=== PATIENT | female | born 1985 | race Caucasian/White ===

== ENCOUNTER 2022-08-18 12:56 | Outpatient (CLI) | payer BC, SELFPAY | END 2022-08-18 12:57 | disposition home or self-care (01) | PROVIDERS: Visit Provider Pediatrics Neonatal-Perinatal Medicine | DX: O09.522 Supervision of elderly multigravida, second trimester (principal); Z3A.20 20 weeks gestation of pregnancy | CPT/HCPCS: 76811 ==

== ENCOUNTER 2022-10-19 17:30 | Outpatient (CLI) | payer BC, SELFPAY | END 2022-10-19 17:31 | disposition home or self-care (01) | LOC: NFLDREF 10-21 12:53 | PROVIDERS: Visit Provider Registered Nurse | DX: O09.523 Supervision of elderly multigravida, third trimester (principal); Z3A.29 29 weeks gestation of pregnancy | CPT/HCPCS: 86592; 86762; 86787; 86850; 86900; 86901 ==

== ENCOUNTER 2022-10-25 08:28 | Outpatient (CLI) | payer BC, SELFPAY | END 2022-10-25 08:29 | disposition home or self-care (01) | LOC: NFLDREF 11:43 | PROVIDERS: Visit Provider Registered Nurse | DX: Z34.90 Encounter for supervision of normal pregnancy, unspecified, unspecified trimester (principal) | CPT/HCPCS: 82951; 82952 ==

== ENCOUNTER 2022-11-04 08:40 | Outpatient (CLI) | payer BC, SELFPAY ==
--- NOTE | 2022-11-04 08:45 | CRLHL7_ITS ---
For Patients: As a result of the Cures Act, medical imaging exams and procedure reports are released immediately into your electronic medical record. You may view this report before your referring provider. If you have questions, please contact your health care provider. INDICATION: Fundal height greater than dates COMPARISON: none TECHNIQUE: Real time amado scale imaging of the fetus was performed. FINDINGS: Sonographic imaging demonstrates a single living intrauterine gestation. Fetus demonstrates a regular cardiac rate of 131 beats per minute. Fetus has a vertex position. The placenta lies right anterior. Amniotic fluid volume appears increased and there is a single deepest vertical pocket: 7.9 cm. BIGG 28.0 cm. The estimated weight is 2gm which lies at the 79th %. BPD 82nd percentile. HC 79th percentile. AC 90th percentile. FL 31st percentile. The HC/AC ratio measures 1.04 range (0.96-1.11). There is adequate diastolic blood flow within the umbilical artery. The S/D ratio measures . IMPRESSION: Sonographic gestational age 33 weeks 0 days and sonographic due date 12/23/2022. Sonographic age 10 days ahead of the clinical age. Estimated weight 79th percentile. Abdominal circumference 90th percentile. Mild polyhydramnios with four-quadrant BIGG 28.0 cm. Dictated by Roger Garza MD @ 11/04/2022 1:12:18 PM (Electronically Signed)
== END 2022-11-04 08:41 | disposition home or self-care (01) ==
PROVIDERS: Visit Provider Registered Nurse
DX: O36.63X0 Maternal care for excessive fetal growth, third trimester, not applicable or unspecified (principal); O40.3XX0 Polyhydramnios, third trimester, not applicable or unspecified; Z3A.33 33 weeks gestation of pregnancy
CPT/HCPCS: 76816

== ENCOUNTER 2022-11-19 13:47 | Outpatient (CLI) | payer BC, SELFPAY ==
--- NOTE | 2022-11-19 14:00 | CRLHL7_ITS ---
For Patients: As a result of the Cures Act, medical imaging exams and procedure reports are released immediately into your electronic medical record. You may view this report before your referring provider. If you have questions, please contact your health care provider. OB ULTRASOUND/BIOPHYSICAL PROFILE 11/19/2022 INDICATION: Polyhydramnios. MONIK by LMP: 01/02/2023. GA: 33w, 5 d. Single. CERVIX: Not visualized. POSITIONING: Breech. AMNIOTIC FLUID: BIGG=32.4 cm. 10.9 cm SDP (N: increase 2 x 1 cm) BIOPHYSICAL PROFILE: Total score: 8. Gross body movements: 2. tone: 2. Respiratory activity: 2. Amniotic fluid: 2. (SDP N: Increase 2 x 1 cm) PLACENTA: Technique: Transabdominal. PLACENTA POSITION: Anterior. DOPPLER: heart rate: 139 bpm. IMPRESSION: Biophysical profile score 8/8. BIGG is 32.4 cm. Single deepest pocket 10.9 cm reflecting polyhydramnios. Shara Ramos M.D. Diagnostic/Breast Radiologist [email or web address] Transcribed: 8:59 am DW/Dictated by: Shara Ramos MD @ 11/20/2022 7:30:00 AM (Electronically Signed)
== END 2022-11-19 13:48 | disposition home or self-care (01) ==
LOC: US 13:48
PROVIDERS: Visit Provider Obstetrics & Gynecology
DX: O40.9XX0 Polyhydramnios, unspecified trimester, not applicable or unspecified (principal)
CPT/HCPCS: 76819

== ENCOUNTER 2022-11-24 08:41 | Outpatient (CLI) | payer BC, SELFPAY ==
--- NOTE | 2022-11-24 08:45 | CRLHL7_ITS ---
For Patients: As a result of the Century Cures Act, medical imaging exams and procedure reports are released immediately into your electronic medical record. You may view this report before your referring provider. If you have questions, please contact your health care provider. INDICATION: female. Evaluate well-being. Polyhydramnios. TECHNIQUE: Transabdominal limited obstetrical ultrasound. COMPARISON: November 19, 2022. FINDINGS: Single living intrauterine in breech presentation. Anterior placenta. heart rate 152 beats per minute. Biophysical profile score 8/8 with 2 points given each for breathing, movement, tone, and amniotic fluid. Persistent polyhydramnios. The amniotic fluid volume index is 39 cm, previously 32.4 cm. The single deepest pocket measurement was not evaluated today. Previously it was elevated at 10.9 cm. IMPRESSION: Biophysical profile score 8/8. Persistent and slightly progressed polyhydramnios. Amniotic fluid volume index 39 cm, previously 32.4 cm. Dictated by Ambrose Sheth MD @ 11/24/2022 4:15:37 PM (Electronically Signed)
== END 2022-11-24 08:42 | disposition home or self-care (01) ==
LOC: US 08:41
PROVIDERS: Visit Provider Obstetrics & Gynecology
DX: O40.9XX0 Polyhydramnios, unspecified trimester, not applicable or unspecified (principal)
CPT/HCPCS: 76819

== ENCOUNTER 2022-12-01 13:48 | Outpatient (CLI) | payer BC, SELFPAY ==
--- NOTE | 2022-12-01 14:00 | CRLHL7_ITS ---
For Patients: As a result of the Century Cures Act, medical imaging exams and procedure reports are released immediately into your electronic medical record. You may view this report before your referring provider. If you have questions, please contact your health care provider. INDICATION: Polyhydramnios. COMPARISON: OB ultrasound 11/24/2022. TECHNIQUE: Real time amado scale imaging of the fetus was performed without non-stress testing. FINDINGS: Sonographic imaging demonstrates a single living intrauterine gestation. The fetus demonstrates a regular cardiac rate of 150 beats per minute. The fetus has a cephalic orientation. The placenta lies anteriorly. There is polyhydramnios with single deepest pocket measuring 13.1 cm and the amniotic fluid index measuring 42.4 cm (2/2). This is increased from prior exam, with previous BIGG measuring 39.0 cm. The fetus was active (2/2). There was normal flexion and extension of the trunk and extremities (2/2). The fetus demonstrated normal breathing movements (2/2). IMPRESSION: 1. Normal biophysical profile score 8 out of 8. 2. Polyhydramnios with BIGG measuring 42.4 cm, increased from prior exam. Dictated by Mary Bahena MD @ 12/01/2022 11:17:49 PM (Electronically Signed)
== END 2022-12-01 13:49 | disposition home or self-care (01) ==
LOC: US 13:49
PROVIDERS: Visit Provider Obstetrics & Gynecology
DX: O40.9XX0 Polyhydramnios, unspecified trimester, not applicable or unspecified (principal)
CPT/HCPCS: 76819

== ENCOUNTER 2022-12-01 16:15 | Outpatient (CLI) | payer BC, SELFPAY ==
[2022-12-02 13:37] LABS: Strep B DNA Probe NEGATIVE (Negative)
[2022-12-02 13:47] LABS: Strep B Pen/Amox Allergy No
== END 2022-12-01 16:16 | disposition home or self-care (01) ==
PROVIDERS: Visit Provider Obstetrics & Gynecology
DX: O40.9XX0 Polyhydramnios, unspecified trimester, not applicable or unspecified (principal)
CPT/HCPCS: 87081; 87653

== ENCOUNTER 2024-08-30 14:09 | Outpatient (CLI) | payer BC, SELFPAY ==
--- NOTE | 2024-08-30 14:20 | CRLHL7_ITS ---
For Patients: As a result of the Century Cures Act, medical imaging exams and procedure reports are released immediately into your electronic medical record. You may view this report before your referring provider. If you have questions, please contact your health care provider. BILATERAL SCREENING MAMMOGRAM WITH COMPUTER-AIDED DETECTION AND TOMOSYNTHESIS TECHNIQUE: CC and MLO views were obtained. These mammographic images have been obtained using full-field digital technique. These mammographic images were interpreted with the benefit of computer-aided detection. Breast tomosynthesis was used in this interpretation. COMPARISON FILM: None. This is a baseline study. FINDINGS: There are scattered areas of fibroglandular density. IMPRESSION: There is no radiographic evidence for malignancy. ASSESSMENT: BI-RADS Category 1: Negative RECOMMENDATION: Annual mammograms beginning at age 40. A lay language report of this examination will be provided to the patient. ROGER ARREDONDO M.D. Diagnostic Radiologist [email or web address] Transcribed: 08/31/2024, 2:[address]/Dictated by: Roger Arredondo MD @ 08/31/2024 8:17:00 AM (Electronically Signed)
== END 2024-08-30 14:10 | disposition home or self-care (01) ==
LOC: MAMMO 14:10
PROVIDERS: Visit Provider Physician Assistant
DX: Z12.31 Encounter for screening mammogram for malignant neoplasm of breast (principal); Z80.3 Family history of malignant neoplasm of breast
CPT/HCPCS: 77063; 77067